=== PATIENT | male | born 1965 | race Caucasian/White ===

== ENCOUNTER 2025-04-22 07:45 | Outpatient (CLI) | payer BC ==
[2025-04-22 09:20] LABS: Estimated GFR - POC 77.0
== END 2025-04-22 07:46 | disposition home or self-care (01) ==
LOC: SCSMRI 07:45
PROVIDERS: ATTEND Urology
DX: R97.20 Elevated prostate specific antigen [PSA] (principal)
CPT/HCPCS: 72197; 82565